=== PATIENT | female | born 2000 | race Caucasian/White ===

== ENCOUNTER 2025-06-01 13:32 | Emergency (ER) | payer BC ==
[2025-06-01] MEDS: Ketorolac 30 MG/ML SDV IVPUSH ONE (14:22)
[2025-06-01 14:23] LABS: BASOPHILS PERCENT AUTO 0.5 % (0.0-1.0); EOSINOPHILS PERCENT AUTO 8.0 % (1.0-3.0); LYMPHOCYTES PERCENT AUTO 12.8 % (20.5-50.1); MONOCYTES PERCENT AUTO 15.0 % (2-8); NEUTROPHILS PERCENT AUTO 63.7 % (42.2-75.2); PLATELET COUNT,PLT 205 10^3/uL (150-450); RED BLOOD CELL COUNT 4.30 10^6/uL (4.2-5.4); WHITE BLOOD CELL COUNT,WBC 9.1 10^3/uL (5.0-10.0)
[2025-06-01 14:47] LABS: LACTIC ACID 0.9 mmol/L (0.4-2.0)
[2025-06-01 14:54] LABS: A/G RATIO 1.2; ALANINE AMINOTRANSFERASE,ALT 24.0 U/L (14-59); ASPARTATE AMNIOTRANSFERASE,AST 17.0 U/L (15-37); BILIRUBIN TOTAL 0.5 mg/dL (0.2-1.0); BLOOD UREA NITROGEN,BUN 7.0 mg/dL (7-18); CARBON DIOXIDE,CO2 26.0 mmol/L (21-32); CHLORIDE,CL 105.0 mmol/L (98-107); CREATININE 0.74 mg/dL (0.55-1.02); EST CRCL DRUG DOSING (CG) 135.28 mL/min; GLUCOSE RANDOM 93.0 mg/dL (70-99); POTASSIUM,K 3.5 mmol/L (3.5-5.1); PROTEIN TOTAL,TP 7.1 g/dL (6.4-8.2); SODIUM,NA 141.0 mmol/L (136-145)
[2025-06-01 14:55] LABS: ESTIMATED GFR 116.0 mL/min (>=60)
== END 2025-06-01 13:55 | disposition home or self-care (01) ==
LOC: DL.ED 13:32
DX: B34.9 Viral infection, unspecified (principal); Z88.1 Allergy status to other antibiotic agents
CPT/HCPCS: 36415; 80053; 83605; 85025; 96361; 96374; 99282; 99284; J1885; J7030